=== PATIENT | male | born 1965 | race Caucasian/White ===

== ENCOUNTER 2020-06-06 14:58 | Emergency (ER) | payer BC ==
[~2020-06-06] VITALS: Ht 167.6 cm; Wt 81.7 kg
[2020-06-06 15:33] LABS: ABSOLUTE LYMPHOCYTES 0.7 thou/uL (0.8-5.3); ABSOLUTE MONOCYTES 0.4 thou/uL (0.0-1.2); ABSOLUTE NEUTROPHILS 4.4 thou/uL (1.6-8.1); BASOPHILS 0.4 %; HEMATOCRIT 42.6 % (42.0-52.0); HEMOGLOBIN 14.7 gm/dL (14.0-18.0); LYMPHOCYTES 12.2 %; MCH 29.9 pg (26.0-34.0); MCHC 34.4 g/dL (28.0-37.0); MCV 86.8 fL (80.0-100.0); MONOCYTES 7.4 %; MPV 9.7 fl. (7.2-11.1); NUCLEATED RBCS 0 /100WBC; PLATELET COUNT* 123 thou/uL (150-400); RBC 4.91 mil/uL (4.50-6.00); RDW-CV 13.6 % (10.5-14.5); WBC 5.5 thou/uL (4.0-11.0)
[2020-06-06 15:43] LABS: CREATININE 1.1 mg/dL (0.6-1.3); POTASSIUM 3.6 mmol/L (3.5-5.1)
[2020-06-06 15:53] LABS: BE -0.1 mmol/L (-2 to +3); PCO2 30.8 mmHg (35.0-45.0); PO2 67.8 mmHg (75.0-100.0); pH 7.478 (7.340-7.450)
[2020-06-06 15:54] LABS: ALBUMIN 3.2 g/dL (3.4-5.0); TOTAL BILIRUBIN 0.4 mg/dL (<0.1-1.0); TOTAL PROTEIN 6.8 g/dL (6.4-8.2)
[2020-06-06] MEDS ORDERED: PROAIR HFA8.5 GM INH (16:29)
[2020-06-06] MEDS ORDERED: DECADRON4 MG PO (16:29)
[2020-06-06 17:13] VITALS: BP 120/81
--- NOTE | 2020-06-07 15:46 | EKG ---
[place] [address] ELECTROCARDIOGRAM REPORT Name: CHELLY GUERRERO Room: [facility]#: [id number] Admission: 06/06/20 Attend Phys: Discharge: 06/06/20 Date of : 67 Date of Service: 06/06/20 1503 Report #: [id number] THIS REPORT FOR: //name// [facility] ED Test Date: 2020-06-06 Test Time: 15:03:42 Pat Name: CHELLY GUERRERO Department: Room: Gender: [employer]: [facility] : 1965 Requested By: Sonja Bal Order Number: [id number] Alexis MD: Candelario Pillai Measurements Intervals [place] Rate: 82 P: 19 MT: 174 QRS: -16 QRSD: 103 T: 6 QT: 350 QTc: 409 Interpretive Statements Sinus rhythm Borderline left axis deviation Borderline T wave abnormalities Baseline wander in lead(s) II,V1,V2 No previous ECG available for comparison Electronically Signed On 06-07-2020 15:46:19 CDT by Candelario Pillai [email or web address] <ELECTRONICALLY SIGNED> By: Candelario Pillai MD, FACC 06/07/20 1546 1503 1503 Candelario Pillai MD, FAC /EPI
== END 2020-06-06 17:14 | disposition home or self-care (01) ==
LOC: M.ERS 14:58
PROVIDERS: Physician Assistant
DX: U07.1 COVID-19 (principal)